=== PATIENT | male | born 1950 | race Caucasian/White ===

== ENCOUNTER 2017-06-08 08:24 | Inpatient (IN) | payer BC, OTHER ==
[2017-05-15 10:55] VITALS: BMI 29.0
--- NOTE | 2017-05-15 11:18 | PAT Medication Instructions ---
Service Date May 15, 2017. Current Home Medication List Diclofenac (Voltaren), 75 MG PO BID Latanoprost (Xalatan 0.005% Oph Christy), 1 DROPS OPB HS Lisinopril (Zestril), 30 MG PO HS Melatonin (Kp Melatonin), 1 TAB PO HS PRN for Insomnia Pantoprazole (Protonix), 20 MG PO QAM Tramadol (Ultram), 50 MG PO Q4H PRN for Pain Medication Instructions For Your Scheduled Surgery - Check with surgeon for instructions: Diclofenac (Voltaren), 75 MG PO BID - Hold the following medications 24 hours prior to surgery: Lisinopril (Zestril), 30 MG PO HS - Take the following medications the morning of surgery with a sip of water: Tramadol (Ultram), 50 MG PO Q4H PRN for Pain (okay to take up to 4 hours prior to surgery if needed) Pantoprazole (Protonix), 20 MG PO QAM - Take the following medications as scheduled the night before surgery: Tramadol (Ultram), 50 MG PO Q4H PRN for Pain (if needed) Melatonin (Kp Melatonin), 1 TAB PO HS PRN for Insomnia (if needed) Latanoprost (Xalatan 0.005% Oph Christy), 1 DROPS OPB HS If you have any questions please call us at [phone] or [phone] or [phone]
[2017-05-15 11:53] LABS: BASO % 0.2 %; BASO ABS # 0.01 K/uL (0-0.2); EOS % 4.5 %; EOS ABS # 0.26 K/uL (0-0.5); HEMATOCRIT 42.3 % (42-52); HEMOGLOBIN 14.8 g/dL (14.0-18.0); IG# 0.01 K/uL (0.00-0.02); LYMPH % 30.2 %; LYMPH ABS # 1.76 K/uL (1.2-3.4); MEAN CELL VOLUME 91.4 fL (80-100); MEAN PLATELET VOLUME 9.6 fL (7.4-10.4); MONO % 8.2 %; MONO ABS # 0.48 K/uL (0.11-0.59); NEUT % 56.7 %; NEUT ABS # 3.31 K/uL (1.4-6.5); PLATELET COUNT 247 K/uL (130-400); RED CELL DISTRIBUTION WIDTH CV 12.6 % (11.5-14.5); RED CELL DISTRIBUTION WIDTH SD 42.3 fL (36.4-46.3); WHITE BLOOD COUNT 5.83 K/uL (4.8-10.8)
[2017-05-15 12:02] LABS: PTT PATIENT 28.2 SECONDS (21.0-31.0)
--- NOTE | 2017-05-15 12:13 | DIAGNOSTIC IMAGING REPORT ---
CHEST 2 VIEWS ROUTINE CLINICAL HISTORY: 67 years-old Male presenting with preoperative assessment. TECHNIQUE: PA and lateral views of the chest were obtained. COMPARISON: None. FINDINGS: Atherosclerosis of the aortic arch. Tortuosity of the descending thoracic aorta. Cardiac silhouette normal in size. Lungs and pleural spaces clear. Degenerative changes of the thoracic spine. Upper abdomen normal. IMPRESSION: 1. No acute cardiopulmonary disease. Electronically signed by: John Moore M.D. 05/15/2017 12:11 PM Dictated Date/Time: 05/15/2017 12:10 PM
[2017-05-15 13:28] LABS: CALCIUM 8.8 mg/dl (8.5-10.1); CREATININE 1.57 mg/dl (0.60-1.40); POTASSIUM 4.6 mmol/L (3.5-5.1)
--- NOTE | 2017-06-07 14:49 | HISTORY & PHYSICAL EXAMINATION ---
DATE OF ADMISSION: 06/08/2017 HISTORY AND PHYSICAL ADMISSION NOTE CHIEF COMPLAINT: Rotator cuff arthropathy of the left shoulder. HISTORY OF PRESENT ILLNESS: Wyatt is a pleasant 66-year-old male who has been having left shoulder pain since early spring. He does not recall any injuries or trauma to his shoulder. He just started to notice progressive loss of motion and weakness. For the past several months, it has got to the point where he is having a hard time doing anything on shoulder level and is having trouble sleeping at night. He is being treated by a chiropractor and his primary care provider before coming to my office. He had an MRI and he had a large unrepairable rotator cuff tear. He had no history of having shoulder problems in the past. He has a lot of grinding and popping in the shoulder. X-rays and clinical examination as well as the MRI at my office were all diagnostic for cuff arthropathy. After failing conservative treatment, he elected to undergo a reverse shoulder arthroplasty. PAST MEDICAL HISTORY: Significant for hypertension, arthritis and GERD. MEDICATIONS: Include Protonix, Voltaren, and lisinopril. PAST SURGICAL HISTORY: Denies. ALLERGIES: INCLUDE PENICILLIN WHICH CAUSED A RASH AND AMPICILLIN. SOCIAL HISTORY: Denies any tobacco, alcohol or IV drug use. FAMILY HISTORY: Denies. REVIEW OF SYSTEMS: Complains of left shoulder pain. All other pertinent review of systems is negative. PHYSICAL EXAMINATION: GENERAL: He is awake, alert and orient x3. He is in no apparent distress. He is very pleasant. HEENT: Pupils equal, round, reactive to light. Extraocular motion was intact. Oral mucosa is pink, moist. HEART: Regular rate per radial pulse. LUNGS: Kayla symmetrically bilaterally with no audible breath sounds. ABDOMEN: Soft, nontender, nondistended. MUSCULOSKELETAL: On physical examination of the left shoulder, he has decreased active range of motion with 100 degrees of forward elevation, 100 degrees of abduction. Passively I can get him through a slightly further range of motion, but he does have significant crepitus throughout. He has 3/5 muscle strength to full can testing, 4/5 muscle strength with external rotation. Negative belly press test. Negative bear hug test. He has tenderness to palpation in the subacromial space. IMAGING DATA: MRI of the shoulder shows a large full thickness cuff tear of the supraspinatus and infraspinatus with retraction back to the glenoid. There is superior migration of the humeral head and significant atrophy of the muscle bellies. IMPRESSION: Rotator cuff arthropathy of the left shoulder. PLAN: Will proceed with a left reverse total shoulder arthroplasty. Postoperatively, he will be placed in an arm sling and kept overnight at the hospital for postoperative medical management. HOLLIE
[~2017-06-08] VITALS: Ht 180.3 cm; Wt 94.5 kg
[2017-06-08] VITALS (8 sets, daily range): BP systolic 118–147; BP diastolic 74–87; PULSE 66–91; TEMP 36.4–36.7; O2SAT 94–99; Ht 180.3 cm; Wt 94.5 kg
[2017-06-08] MEDS: TRANEXAMIC ACID INJ 1,000 MG x 2 Bags IV SCH ×4 (06:30→10:29)
[~2017-06-08 08:24] MED LIST: ACETAMINOPHEN 500 MG TAB PO SCH; CEFAZOLIN 2000MG IV PUSH 15 ML IV SCH; DEXAMETHASONE SOD INJ 4 MG/ML VIAL ONE; DICL-201 PO; FAMOTIDINE 20 MG TAB PO SCH; GABAPENTIN 300 MG CAP PO SCH; LACTATED RINGER'S 1000ML 1,000 ML IV SCH; LACTATED RINGER'S 1000ML IV SCH; LATA0.009 OPB; LISI1TAB3 PO; MELA1TAB5 PO; PRT/20 PO; ROPIVACAINE 0.5% 5 MG/ML 30 ML VIAL ONE; ROPIVACAINE 5MG/ML 30 ML 150 MG, BUPIVACAINE 0.5% MPF INJ 30 ML, EpINEphrine HCL INJ 0.... INFIL SCH; TRAM-10 PO
--- NOTE | 2017-06-08 09:20 | History & Physical Bridge Note ---
H&P Re-Evaluation Bridge Note: I have examined the patient, reviewed the History & Physical and in the interval since the performance of the History & Physical I have noted the following changes of clinical significance: No changes noted
[2017-06-08 09:35] LABS: CALCIUM 8.9 mg/dl (8.5-10.1); CREATININE 1.38 mg/dl (0.60-1.40)
[2017-06-08] MEDS ORDERED: ONDANSETRON INJ 2 MG/ML 2 ML VIAL ONE (09:49)
[2017-06-08] MEDS ORDERED: GLYCOPYRROLATE INJ 0.2 MG/ML VIAL ONE (09:49)
[2017-06-08] MEDS ORDERED: NEOSTIGMINE METHYLSULFATE 5 MG/5 ML SYR ONE (09:49)
[2017-06-08] MEDS ORDERED: SUCCINYLCHOLINE CHLORIDE 20 MG/ML 10 ML VIAL IV ONE (09:49)
[2017-06-08] MEDS ORDERED: PROPOFOL IV EMULSION 10 MG/ML 20 ML VIAL IV ONE (09:49)
[2017-06-08] MEDS ORDERED: FENTANYL CITRATE INJ 50 MCG/1 ML 2 ML VIAL ONE (09:49)
[2017-06-08] MEDS ORDERED: PHENYLEPHRINE HCL INJ 10 MG/ML VIAL ONE ×2 (09:49→12:07)
[2017-06-08] MEDS ORDERED: EpHEDrine SULFATE INJ 50 MG/ML AMP ONE (09:49)
[2017-06-08] MEDS ORDERED: MIDAZOLAM HCL 1 MG/ML 2ML VIAL ONE ×2 (09:49→09:50)
[2017-06-08] MEDS ORDERED: DEXAMETHASONE SOD INJ 4 MG/ML VIAL ONE (09:49)
[2017-06-08] MEDS ORDERED: LIDOCAINE HCL 2% 2 ML VIAL (20MG/ML) ONE (09:49)
[2017-06-08] MEDS ORDERED: ORTHO JOINT ANESTHETIC ONE (10:06)
[2017-06-08] MEDS ORDERED: BACITRACIN 50000 UNIT VIAL ONE (10:06)
[2017-06-08] MEDS ORDERED: EpHEDrine SULFATE 50MG/5ML SYR ONE (11:57)
[2017-06-08] MEDS ORDERED: FENTANYL CITRATE INJ 50 MCG/1 ML 2 ML VIAL IV PRN (12:00)
[2017-06-08] MEDS ORDERED: ATROPINE SULFATE 0.1 MG/ML 5ML SYR IV PRN (12:00)
[2017-06-08] MEDS ORDERED: ONDANSETRON INJ 2 MG/ML 2 ML VIAL IV PRN ×2 (12:00→13:00)
[2017-06-08] MEDS ORDERED: LABETALOL HCL IV 5 MG/ML 20ML IV PRN (12:00)
[2017-06-08] MEDS ORDERED: HYDROmorphone INJ 1 MG/ML SYR IV PRN (12:00)
[2017-06-08] MEDS ORDERED: EpHEDrine SULFATE INJ 50 MG/ML AMP IV PRN (12:00)
[2017-06-08] MEDS ORDERED: MEPERIDINE HCL 25 MG/ML CARP IV PRN (12:00)
--- NOTE | 2017-06-08 12:56 | [facility] Post Operative Brief Note ---
Immediate Operative Summary Operative Date Jun 08, 2017. Pre-Operative Diagnosis Rotator cuff arthropathy of the left shoulder Post-Operative Diagnosis Rotator cuff arthropathy of the left shoulder Procedure(s) Performed Left Reverse Total Shoulder Arthroplasty, Uncemented Surgeon Dr. Benedict Wardrobe Image Consultant Surgeon(s) None Estimated Blood Loss 200 mL Findings Consistent with Post-Op Diagnosis Specimens A: Left humeral head Anesthesia Type General Regional Complication(s) none Disposition Disposition: Recovery Room / PACU
[2017-06-08] MEDS ORDERED: SOD PHOSPHATE/SOD BIPHOSPHATE ENEMA 132 ML BTL PR PRN (13:00)
[2017-06-08] MEDS ORDERED: BISACODYL 10 MG SUPP PR PRN (13:00)
[2017-06-08] MEDS ORDERED: OXYCODONE HCL IR 5 MG TAB (IMMEDIATE RELEASE) PO PRN (13:00)
[2017-06-08] MEDS ORDERED: NON-FORMULARY MEDICATION (Melatonin (Kp Melatonin) 1 TAB) PO PRN (13:00)
[2017-06-08] MEDS ORDERED: MAGNESIUM HYDROXIDE SUSP 30 ML UDC PO PRN (13:00)
[2017-06-08] MEDS ORDERED: CEFAZOLIN IV 2,000 MG in DEXTROSE 5% 50ML 50 ML IV SCH (13:00)
[2017-06-08] MEDS ORDERED: MoRPHine SULFATE 2 MG/ML CARP IV PRN (13:00)
[2017-06-08] MEDS ORDERED: METOCLOPRAMIDE HCL INJ 5 MG/ML 2 ML VIAL IV PRN (13:00)
[2017-06-08] MEDS ORDERED: NALOXONE HCL 0.4 MG/1 ML VIAL/CARP IV PRN (13:00)
[2017-06-08] MEDS ORDERED: ROCURONIUM BROMIDE 10 MG/ML 5 ML VIAL IV ONE (13:06)
--- NOTE | 2017-06-08 13:12 | DIAGNOSTIC IMAGING REPORT ---
L SHOULDER MIN 2 VIEWS ROUTINE CLINICAL HISTORY: Post shoulder surgery COMPARISON: None. DISCUSSION: Anatomic alignment post left shoulder arthroplasty. Expected soft tissue postoperative change IMPRESSION: Anatomic alignment post left shoulder arthroplasty. The above report was generated using voice recognition software. It may contain grammatical, syntax or spelling errors. Electronically signed by: Alber Perez M.D. 06/08/2017 1:10 PM Dictated Date/Time: 06/08/2017 1:09 PM
[2017-06-08] MEDS ORDERED: ACETAMINOPHEN IV 1,000 MG in EMPTY BAG 0 ML IV SCH (14:00)
--- NOTE | 2017-06-08 14:04 | Anesthesiology Progress Note ---
Anesthesia Post Op Note Date & Time Jun 08, 2017 at 14:04 Vital Signs Pain Intensity: 0 Vital Signs Past 12 Hours Date Time Temp Pulse Resp B/P (MAP) Pulse Ox O2 Delivery O2 Flow Rate FiO2 06/08/17 13:35 36.3 76 16 119/76 97 Oxymask 2 06/08/17 13:25 78 18 127/87 97 Oxymask 2 06/08/17 13:15 79 13 122/77 97 Oxymask 8 06/08/17 13:05 84 16 116/79 100 Oxymask 8 06/08/17 12:56 36 83 16 139/88 98 Oxymask 8 06/08/17 08:52 36.7 76 18 136/87 97 Room Air Notes Mental Status: alert / awake / arousable, participated in evaluation Pt Amnestic to Procedure: Yes Nausea / Vomiting: adequately controlled Pain: adequately controlled Airway Patency, RR, SpO2: stable & adequate BP & HR: stable & adequate Hydration State: stable & adequate Anesthetic Complications: no major complications apparent
[2017-06-08] MEDS: POTASSIUM CHLORIDE INJ 10 MEQ in SODIUM CHLORIDE 0.9% 1000ML 1,000 ML IV SCH (15:15)
--- NOTE | 2017-06-08 15:59 | OPERATIVE REPORT ---
DATE OF OPERATION: 06/08/2017 PREOPERATIVE DIAGNOSIS: Rotator cuff arthropathy of the left shoulder. POSTOPERATIVE DIAGNOSIS: Same. PROCEDURE: A left reverse total shoulder arthroplasty. SURGEON: Dr. Amos Benedict. CHEMICALS FERMENTATION OPERATOR: None. ANESTHESIA: General with a left interscalene nerve block. COMPLICATIONS: None. CONDITION: Stable to PACU. INDICATIONS: Wyatt is a pleasant 67-year-old male who presented to my office with complaints of [id number] left shoulder pain. He has noticed progressive pain and weakness in his shoulder. MRI and clinical examination were diagnostic for chronic retracted rotator cuff tear. After failing conservative treatment, he elected to undergo a reverse left shoulder arthroplasty. OPERATION AND FINDINGS: On 06/08/2017, he arrived at [facility] for the above procedure. He was seen in the preoperative holding area and the operative extremity was identified and signed. He was given a preoperative antibiotic and a left interscalene nerve block. He was taken back to the operating room, laid on the table in supine position and put under general anesthesia. He was then put into the beachchair position. The left shoulder was prepped and draped in sterile fashion. Time-out was done and the patient and operative extremity was properly identified. A deltopectoral approach was used. Dissection was taken down through the fascia and through the deltopectoral interval. The anterior shoulder was exposed. The long head of the biceps tendon was tenodesed to the upper border of the pectoralis major. The rotator interval was opened up and the subscapularis was tenotomized off the lesser tuberosity with a centimeter of cuff tissue remaining. There was a tear of the entire supraspinatus and infraspinatus. The proximal humerus was easily exposed. Sequential reaming up to a size 14 reamer was done. Off the final reamer, a proximal humeral resection guide was placed and the proximal humerus was resected at 135 degrees of inclination and 20 degrees of retroversion. The glenoid was then exposed. Time was spent doing a complete circumferential capsular and labral release. A guide was placed off the inferior aspect of the glenoid and a guide pin was placed at 10 degrees of inclination. A 25-mm mini baseplate was then reamed. The final baseplate was impacted into place. A single 6.5-mm central screw was placed followed by superior and inferior locking screws. A 41-mm standard eccentric glenosphere was then impacted into place. The proximal humerus was then exposed. Sequential broaching up to a size 14 broach was done. Off that broach, a standard humeral bearing was trialed. The shoulder was reduced, brought through a full range of motion and felt to be stable. The broach was then removed. The final humeral stem was then impacted into place. The standard humeral bearing was snapped onto the humeral tray and the ring lock mechanism was engaged. The humeral tray was then impacted onto the humeral stem. The shoulder was then reduced, brought through a full range of motion and felt to be stable. The subscapularis was then tenodesed back to the lesser tuberosity with transosseous FiberWire sutures and [id number] sutures. The surrounding soft tissues were injected with 100 mL of an orthopedic pain control cocktail. The wound was then irrigated with 3 liters of normal saline solution with bacitracin. The axillary nerve was palpated. A drain was placed. Skin was closed with 2-0 Vicryl, 3-0 V-Loc sutures and viry. He was placed in a soft dressing and a regular arm sling. He was then extubated, transferred to a [facility] and taken to the postanesthesia care unit in stable condition. He tolerated the procedure well. IMPLANTS USED: I used a Biomet comprehensive reverse left shoulder arthroplasty system with a size 14 mini stem, a 25-mm mini baseplate, a standard humeral tray and bearing and a size 41 standard eccentric glenosphere. I attest to the content of the Intraoperative Record and any orders documented therein. Any exception s are noted below.
[2017-06-08] MEDS: KETOROLAC TROMETHAMINE 15 MG/ML VIAL IV. SCH (18:33)
[2017-06-08] MEDS: CEFAZOLIN IV 2,000 MG in SYRINGE 0 ML IV SCH (18:38)
[2017-06-08] MEDS ORDERED: SENNA 8.6 MG TAB PO SCH (21:00)
[2017-06-08] MEDS ORDERED: LATANOPROST 0.005% OP SOLN 2.5 ML BTL OPB SCH (21:00)
[2017-06-08] MEDS ORDERED: LISINOPRIL 20 MG TAB PO SCH (21:00)
[2017-06-08] MEDS: ACETAMINOPHEN 500 MG TAB PO SCH (21:33)
[2017-06-08] MEDS: DOCUSATE SODIUM 100 MG CAP PO SCH (21:33)
[2017-06-09] MEDS: KETOROLAC TROMETHAMINE 15 MG/ML VIAL IV. SCH ×2 (00:14→05:16)
[2017-06-09] MEDS: CEFAZOLIN IV 2,000 MG in SYRINGE 0 ML IV SCH (00:14)
[2017-06-09] MEDS: POTASSIUM CHLORIDE INJ 10 MEQ in SODIUM CHLORIDE 0.9% 1000ML 1,000 ML IV SCH ×2 (00:14→10:07)
[2017-06-09 03:20] VITALS: BP 120/78; PULSE 81; TEMP 36.7; O2SAT 96
[2017-06-09] MEDS: ACETAMINOPHEN 500 MG TAB PO SCH (05:16)
[2017-06-09 06:06] LABS: HEMATOCRIT 35.8 % (42-52); HEMOGLOBIN 12.4 g/dL (14.0-18.0); MEAN CELL VOLUME 89.9 fL (80-100); MEAN CORPUSCULAR HEMOGLOBIN 31.2 pg (25-34); MEAN CORPUSCULAR HGB CONC 34.6 g/dl (32-36); PLATELET COUNT 203 K/uL (130-400); RED CELL DISTRIBUTION WIDTH CV 12.6 % (11.5-14.5); RED CELL DISTRIBUTION WIDTH SD 41.5 fL (36.4-46.3); WHITE BLOOD COUNT 10.66 K/uL (4.8-10.8)
[2017-06-09 06:42] LABS: CALCIUM 8.4 mg/dl (8.5-10.1); CREATININE 1.73 mg/dl (0.60-1.40); POTASSIUM 4.5 mmol/L (3.5-5.1)
[2017-06-09] MEDS ORDERED: RXC5 PO (07:06)
--- NOTE | 2017-06-09 07:08 | Discharge Instructions ---
Discharge Instructions Date of Service Jun 09, 2017. Admission Reason for Admission: Left Shoulder Degenerative Joint Disease Discharge Discharge Diagnosis / Problem: Left Reverse Total Shoulder Discharge Goals Goal(s): Decrease discomfort, Improve function Activity Recommendations Activity Limitations: as noted below . Instructions / Follow-Up Instructions / Follow-Up Activity and Therapy Recommendations: * Wear your sling for 3 weeks, unless otherwise instructed. You may remove your sling to shower and to dress, but otherwise, you should be in your sling at all times, including while sleeping * The shoulder replacement is very stable and you can use your hand while in the sling * Physical Therapy should start about 3-5 days from your day of surgery. Therapy will last about 8-12 weeks * You were shown a series of exercises in the hospital. Do these exercises daily including the exercises you were shown in physical therapy. Medications: * Narcotic You will likely be sent home from the hospital with a prescription for the narcotic pain medication that worked best throughout your stay. * Other medications may be prescribed for specific circumstances. If you have any questions, please call the office at . * Resume previous home medications unless otherwise instructed Showering: You may shower 5 days from the day of surgery. Let the soapy shower water run over the viry. Do not scrub or soak the incision. Things To Watch For: * Drainage from the incision site that occurs more than one week after your surgery. * Increased redness at the incision site. * Fever above 102 degrees Fahrenheit. * Unusual chest pain or shortness of breath. * Call [facility] at with any of the above problems Follow-Up Visit: Follow-up with Dr. Benedict 2 weeks after your day of surgery. An appointment was probably scheduled when you signed-up for surgery in the office. If you have any questions call Office Instructions: More detailed instructions as well as Frequently Asked Questions were provided in a folder by our office when you signed-up for surgery. Please review these instructions when you get home. If you have any further questions or concerns, please feel free to call the office at [phone] Current Hospital Diet Patient's current hospital diet: Regular Diet Discharge Diet Recommended Diet: Regular Diet Procedures Procedures Performed: Left Reverse Total Shoulder Arthroplasty, Uncemented Pending Studies Studies pending at discharge: no Medical Emergencies . Who to Call and When: Medical Emergencies: If at any time you feel your situation is an emergency, please call 911 immediately. . Non-Emergent Contact Non-Emergency issues call your: Surgeon Call Non-Emergent contact if: wound has increased drainage, wound has increased redness . "Provider Documentation" section prepared by Amos Benedict. . VTE Core Measure Inpt VTE Proph given/why not?: Treatment not indicated
[2017-06-09 07:20] VITALS: BP 127/77; PULSE 80; TEMP 36.8; O2SAT 96
[2017-06-09 08:02] VITALS: BP 127/77; PULSE 80; TEMP 36.8; O2SAT 96
--- NOTE | 2017-06-09 08:50 | PROGRESS NOTE ---
DATE: 06/09/2017 CHIEF COMPLAINT: Status post left reverse shoulder arthroplasty postop day #1. PROGRESS: Claude was seen and examined at bedside today. Overall, he is doing very well. He says really has no pain in his shoulder. He has been up and ambulating to the bathroom overnight. He has no complaints. PHYSICAL EXAMINATION: LEFT SHOULDER: The dressing is clean and dry and the drain is to suction. He is wearing his left arm sling as instructed. His radial, median and ulnar nerves were checked and intact at his wrist. His axillary nerve was not checked yet. VITAL SIGNS: His vital signs are all stable on room air. GENERAL: He is voiding on his own. LABORATORY DATA: He had an H&H today of 12.4 and 35.8. His glucose is 134. IMAGING: X-rays postoperatively of the left shoulder show the prosthesis to be in anatomic alignment without any evidence of fracture, dislocation or loosening. IMPRESSION: Status post reverse left shoulder arthroplasty postop day #1. PLAN: At this point, he is doing as well as expected. He will be seen by physical therapy today and be able to do hand, wrist, elbow and pendulum exercises. The nursing staff will change the dressing, pull the drain and will discharge him to home later this morning on oral pain medications.
[2017-06-09] MEDS ORDERED: PANTOprazole SOD 40 MG TAB PO SCH (09:00)
[2017-06-09] MEDS ORDERED: MULTIVITAMIN TAB PO SCH (09:00)
[2017-06-09] MEDS: DOCUSATE SODIUM 100 MG CAP PO SCH (10:08)
[2017-06-09 10:35] VITALS: BP 117/78; PULSE 85; TEMP 36.9; O2SAT 94
[2017-06-09 11:45] VITALS: BP 117/75; PULSE 88; O2SAT 96
--- NOTE | 2017-06-09 13:41 | DISCHARGE SUMMARY ---
DISCHARGE DIAGNOSIS: Rotator cuff arthropathy of the left shoulder. PROCEDURE: Left reverse total shoulder arthroplasty by Dr. Benedict on 06/08/2017. DISCHARGE INSTRUCTIONS: 1. Oxycodone 5 to 10 mg every 4 hours as needed for pain. 2. Voltaren 75 mg twice a day. 3. Xalatan eye drops at night. 4. Zestril 30 mg daily. 5. Melatonin 3 mg tabs as needed. 6. Protonix 20 mg daily. 7. Ultram 50 mg as needed for pain. 8. Left arm sling for 3 weeks. 9. Follow up with Dr. Benedict in 2 weeks. 10. Call the office of Dr. Benedict with any questions or concerns. HOSPITAL COURSE: Wyatt is a pleasant 67-year-old male who has been having a year long history of increasing left shoulder pain. X-rays, MRI and clinical examination were diagnostic for cuff arthropathy of the left shoulder. After failing conservative treatment, he elected to undergo a reverse left shoulder arthroplasty. On 06/08/2017, he arrived at [facility] and underwent a reverse left shoulder arthroplasty without complication. Postoperatively, he was placed in an arm sling and discharged to general orthopedic floor. His hospital course was uneventful. On postop day #1, his H&H was stable at 12.4 and 35.8. He was able to participate well with physical therapy. His pain was well controlled. The nursing staff changed the dressing, pulled the drain, and he was subsequently discharged to home with the above instructions.
== END 2017-06-09 11:30 | disposition home or self-care (01) | DRG 483 ==
LOC: C.ACU 08:24 → C.3E 09:30 → ENRESERV 13:19
PROVIDERS: ADMIT Orthopaedic Surgery; ATTEND Orthopaedic Surgery
PROC: 0RRK00Z Replacement of Left Shoulder Joint with Reverse Ball and Socket Synthetic Substitute, Open Approach (ICD-10-PCS; principal; 2017-06-08 11:00)
DX: M19.012 Primary osteoarthritis, left shoulder (principal); I10 Essential (primary) hypertension; K21.9 Gastro-esophageal reflux disease without esophagitis; Z79.899 Other long term (current) drug therapy; Z88.0 Allergy status to penicillin

== ENCOUNTER 2018-04-26 05:41 | Inpatient (IN) ==
[2018-04-26 08:13] LABS: iSTAT Hemoglobin 12.6 g/dl (14.0-18.0); iSTAT Ionized Calcium 1.2 mmol/l (1.12-1.32)
[2018-04-27 06:06] LABS: Hemoglobin 10.8 g/dL (14.0-18.0); Mean Corpuscular Hgb Conc 33.8 g/dL (32-36); Mean Corpuscular Volume 89.1 fL (80-100); Mean Platelet Volume 9.9 fL (7.4-10.4); Platelet Count 215 K/uL (130-400); RDW Coefficient of Variation 13.6 % (11.5-14.5); Red Blood Count 3.59 M/uL (4.7-6.1); White Blood Count 10.14 K/uL (4.8-10.8)
[2018-04-27 06:43] LABS: BUN Creatinine Ratio 12.8 (10-20); Calcium 8.2 mg/dl (8.5-10.1); Est GFR (African American) 47.7; Est GFR (Non-African American) 41.1; Potassium 4.3 mmol/L (3.5-5.1)
== END 2018-04-29 16:20 ==
LOC: ASU 05:41 → 3E 07:09